=== PATIENT | male | born 1970 | race Two or more races ===

== ENCOUNTER 2019-08-21 09:48 | Outpatient (CLI) | payer OTHER ==
[2019-08-23] MEDS ORDERED: GLIMEPIRIDE2 M1 PO (11:02)
== END 2019-08-21 09:53 | disposition home or self-care (01) ==
LOC: LAB 09:48
PROVIDERS: ATTEND Surgery
DX: K62.5 Hemorrhage of anus and rectum (principal); K64.3 Fourth degree hemorrhoids

== ENCOUNTER 2019-08-25 07:09 | Day surgery (SDC) | payer OTHER ==
[~2019-08-25 07:09] MED LIST: GLIMEPIRIDE2 M1 PO
[2019-08-25] MEDS ORDERED: PERCOCET 5-3251 EACH PO (13:23)
[2019-08-25] MEDS ORDERED: KETO10TA2 PO (13:24)
[2019-08-25] MEDS ORDERED: RECTICARE30 GM TOP (13:26)
== END 2019-08-25 16:15 | disposition home or self-care (01) ==
LOC: CIR.AMB 07:09
PROVIDERS: ATTEND Surgery
DX: K64.8 Other hemorrhoids (principal)